=== PATIENT | female | born 1990 | race Caucasian/White ===

== ENCOUNTER 2017-06-01 21:00 | Emergency (ER) | payer OTHER ==
[~2017-06-01] VITALS: Ht 170.2 cm; Wt 88.6 kg
[2017-06-01 21:45] VITALS: BP 136/91
[2017-06-01] MEDS ORDERED: ONDANSETRON HCL 4 MG TABLET PO ONE (21:45)
== END 2017-06-01 21:57 | disposition home or self-care (01) ==
LOC: EMS 21:01
DX: R11.2 Nausea with vomiting, unspecified (principal); R19.7 Diarrhea, unspecified
CPT/HCPCS: 99283; Q0162